=== PATIENT | female | born 1950 | race Caucasian/White ===

== ENCOUNTER 2021-11-12 20:55 | Emergency (ER) | payer MEDICARE, BC ==
[~2021-11-12] VITALS: Ht 167.6 cm; Wt 61.7 kg
[2021-11-12 21:15] VITALS: BP 173/94
--- NOTE | 2021-11-12 21:20 | NUR ---
BIBDAUGHTER C/O "SEVERE NECKPAIN RADIATING DOWN GERBER SHOULDERS" [id number] +HEADACHE. PATIENT ALERT AND ORIENTED X3. AMBULATORY WITH NON LABORED BREATHING IN BED 06.
--- NOTE | 2021-11-12 22:07 | NUR ---
PATIENT LEFT WITHOUT BEING SEEN
== END 2021-11-12 22:08 | disposition left against medical advice (07) ==
LOC: ER 21:33
DX: Z53.21 Procedure and treatment not carried out due to patient leaving prior to being seen by health care provider (principal)